=== PATIENT | female | born 1970 | race African-American/Black ===

== ENCOUNTER 2017-06-16 06:28 | Emergency (ER) | payer MEDICARE, MEDICAID ==
[~2017-06-16] VITALS: Ht 170.2 cm; Wt 127.7 kg
[~2017-06-16 06:28] MED LIST: AVELOX400 MG PO; B COMPLE2 PO; CALCIUM 600/VI600 MG PO; ESTRADIOL0.05 MG TD; IMITREX25 MG PO; LORATADINE10 M1 PO; MOTRIN800 MG PO; PREVACID30 M1 PO; TESSALON PER100 MG PO; TOPAMAX50 M1 PO; ZADITOR0.025 % OP
[2017-06-16 06:51] LABS: HEMATOCRIT 42.6 % (37.0-47.0); HEMOGLOBIN 14.2 g/dl (12.0-16.0); IMMATURE GRANULOCYTES 0.3 % (0.0-1.0); MEAN CELL VOLUME 92.4 fL CALC (80.0-100.0); MEAN CORPUSCULAR HGB 30.8 pG CALC (26.0-32.0); MEAN CORPUSCULAR HGB CONC 33.3 g/L CALC (32.0-36.0); NEUT# 1.28 thou/uL (2.00-7.15); RED BLOOD COUNT 4.61 mill/uL (4.20-5.60); RED CELL DISTRI WIDTH 12.1 % (11.5-15.5)
[2017-06-16 07:24] LABS: ALKALINE PHOSPHATASE 84 u/l (38-126); ANION GAP 16 (6-22 (CALC)); BILIRUBIN, TOTAL 0.8 mg/dL (0.0-1.4); BUN 13 mg/dL (7-17); BUN/CREATININE RATIO 16 (12-20 (CALC)); CARBON DIOXIDE 26 mmol/l (22-30); CHLORIDE 105 mmol/l (95-108); CREATININE 0.8 mg/dL (0.5-1.0); GFR > 60 ML/MIN (>=60 (CALC)); GFR FOR AFR.AMER. > 60 ML/MIN (>=60 (CALC)); POTASSIUM 4.1 mmol/l (3.5-5.1); SGOT/AST 21 u/l (14-36); SGPT/ALT 35 u/l (9-52); SODIUM 143 mmol/l (137-146); TOTAL PROTEIN 7.8 g/dL (6.3-8.2)
[2017-06-16 07:36] LABS: MYOGLOBIN 23 ng/mL (0 - 62)
[2017-06-16] MEDS ORDERED: TORADOL PO (08:35)
[2017-06-16 08:45] VITALS: BP 143/85
== END 2017-06-16 08:58 | disposition home or self-care (01) ==
LOC: ED 06:28
PROVIDERS: Emergency Medicine
DX: M94.0 Chondrocostal junction syndrome [Tietze] (principal); M19.90 Unspecified osteoarthritis, unspecified site; D70.9 Neutropenia, unspecified

== ENCOUNTER → 2017-12-07 | Outpatient (REF) | payer MEDICARE, MEDICAID ==
[~2017-12-07] MED LIST changes: +TORADOL PO
[2017-12-07 09:28] LABS: ALBUMIN 3.8 g/dL (3.2-5.0); ALKALINE PHOSPHATASE 72 u/l (38-126); ANION GAP 11 (6-22 (CALC)); BILIRUBIN, TOTAL 1.1 mg/dL (0.0-1.4); BUN 11 mg/dL (7-17); BUN/CREATININE RATIO 14 (12-20 (CALC)); CARBON DIOXIDE 28 mmol/l (22-30); CHLORIDE 109 mmol/l (95-108); CREATININE 0.8 mg/dL (0.5-1.0); GFR > 60 ML/MIN (>=60 (CALC)); GFR FOR AFR.AMER. > 60 ML/MIN (>=60 (CALC)); POTASSIUM 4.5 mmol/l (3.5-5.1); SGOT/AST 23 u/l (14-36); SODIUM 143 mmol/l (137-146); TOTAL PROTEIN 7.1 g/dL (6.3-8.2)
== END | disposition home or self-care (01) ==
LOC: LAB 08:11
PROVIDERS: ATTEND Internal Medicine Endocrinology, Diabetes & Metabolism
DX: R53.83 Other fatigue (principal); E21.3 Hyperparathyroidism, unspecified; E66.9 Obesity, unspecified

== ENCOUNTER 2019-11-29 13:03 | Emergency (ER) | payer MEDICARE, MEDICAID ==
[~2019-11-29] VITALS: Ht 170.2 cm; Wt 102.0 kg
[2019-11-29] MEDS ORDERED: ESCITALOPRAM OX10 MG PO (13:43)
[2019-11-29] MEDS ORDERED: AMOX/K CLAV875 M1 PO (15:13)
[2019-11-29 15:22] VITALS: BP 134/78
== END 2019-11-29 15:26 | disposition home or self-care (01) ==
LOC: ED 13:03
DX: S02.2XXA Fracture of nasal bones, initial encounter for closed fracture (principal); S06.0X0A Concussion without loss of consciousness, initial encounter; S00.31XA Abrasion of nose, initial encounter; W01.198A Fall on same level from slipping, tripping and stumbling with subsequent striking against other object, initial encounter; Y92.009 Unspecified place in unspecified non-institutional (private) residence as the place of occurrence of the external cause

== ENCOUNTER 2021-08-03 09:06 | Emergency (ER) | payer MEDICARE, MEDICAID ==
[~2021-08-03] VITALS: Ht 170.2 cm; Wt 118.0 kg
[~2021-08-03 09:06] MED LIST changes: +ALBUTEROL108 MCG/AC; +AMOX/K CLAV875 M1 PO; +CALCIUM600 M1 PO; +ESCITALOPRAM OX10 MG PO; +INDERAL LA60 MG PO; +MECLIZINE25 MG PO; +PRAVASTATIN SOD10 MG PO; +RESTASIS0.05 % OP; +VITAMIN D31000 UNI1 PO
[2021-08-03 09:30] VITALS: BP 119/75
[2021-08-03 10:03] VITALS: BP 125/73
[2021-08-03 10:03] LABS: HEMATOCRIT 42.1 % (37.0-47.0); HEMOGLOBIN 13.7 g/dl (12.0-16.0); MEAN CELL VOLUME 95.7 fL CALC (80.0-100.0); MEAN CORPUSCULAR HGB 31.1 pG CALC (26.0-32.0); MEAN CORPUSCULAR HGB CONC 32.5 g/dL CAL (32.0-36.0); NEUT# 1.18 thou/uL (2.00-7.15); RED BLOOD COUNT 4.4 mill/uL (4.20-5.60); RED CELL DISTRI WIDTH 12.3 % (11.5-15.5)
[2021-08-03 10:27] LABS: ALKALINE PHOSPHATASE 79 u/l (38-126); ANION GAP 10 (6-22 (CALC)); BUN 11 mg/dL (7-17); BUN/CREATININE RATIO 13 (12-20 (CALC)); CARBON DIOXIDE 27 mmol/l (22-30); CHLORIDE 107 mmol/l (95-108); CREATININE 0.8 mg/dL (0.5-1.0); GFR FOR AFR.AMER. > 60 ML/MIN (>=60 (CALC)); GFR OTHER RACES > 60 ML/MIN (>=60 (CALC)); POTASSIUM 4.3 mmol/l (3.5-5.1); SGOT/AST 27 u/l (14-36); SODIUM 140 mmol/l (137-146); TOTAL PROTEIN 7.7 g/dL (6.3-8.2)
[2021-08-03 10:31] VITALS: BP 120/75
[2021-08-03 10:38] LABS: BILIRUBIN, TOTAL 1.2 mg/dL (0.0-1.4)
[2021-08-03 11:24] VITALS: BP 112/81
[2021-08-03 11:30] VITALS: BP 127/77
== END 2021-08-03 11:56 | disposition home or self-care (01) ==
LOC: ED 09:06
PROVIDERS: Family Medicine
DX: R51.9 Headache, unspecified (principal); J45.901 Unspecified asthma with (acute) exacerbation

== ENCOUNTER 2021-12-28 13:54 | Emergency (ER) | payer MEDICARE, MEDICAID ==
[~2021-12-28] VITALS: Ht 170.2 cm; Wt 100.0 kg
[2021-12-28 16:12] VITALS: BP 143/88
[2021-12-28 16:15] VITALS: BP 144/90
[2021-12-28 16:30] VITALS: BP 147/91
[2021-12-28 16:46] VITALS: BP 145/94
[2021-12-28 17:00] VITALS: BP 148/89
[2021-12-28] MEDS ORDERED: NAPROXEN500 MG PO (19:11)
[2021-12-28 20:12] VITALS: BP 140/70
== END 2021-12-28 20:10 | disposition home or self-care (01) ==
LOC: ED 13:54
DX: S93.402A Sprain of unspecified ligament of left ankle, initial encounter (principal); W01.0XXA Fall on same level from slipping, tripping and stumbling without subsequent striking against object, initial encounter; Y92.410 Unspecified street and highway as the place of occurrence of the external cause

== ENCOUNTER 2022-02-18 06:41 | Emergency (ER) | payer MEDICARE, MEDICAID ==
[2022-02-18] VITALS (8 sets, daily range): BP systolic 112–128; BP diastolic 72–84
[~2022-02-18] VITALS: Ht 170.2 cm; Wt 118.8 kg
[~2022-02-18 06:41] MED LIST changes: +NAPROXEN500 MG PO
[2022-02-18] MEDS ORDERED: MOTRIN800 MG PO (09:17)
== END 2022-02-18 09:55 | disposition home or self-care (01) ==
LOC: ED 06:41
DX: M79.605 Pain in left leg (principal); R60.9 Edema, unspecified